=== PATIENT | female | born 1950 | race Caucasian/White ===

== ENCOUNTER 2016-12-18 09:06 | Day surgery (SDC) | payer OTHER, BC ==
[~2016-12-18] VITALS: Ht 167.6 cm; Wt 81.7 kg
[~2016-12-18 09:06] MED LIST: CALCIUM ACETAT667 MG PO; ERGOCALCIF50000 UNIT PO; FOSRENOL1000 MG PO; NEPHROCAPS SOFTG1 MG PO; PROTONIX40 MG PO; SENSIPAR30 MG PO
[2016-12-18 10:57] LABS: METH RESISTANT S AUREUS PCR NEGATIVE (NEGATIVE)
[2016-12-18 10:58] LABS: PROBE CHECK PASS; SPECIMEN PROCESSING CONTROL PASS
[2016-12-18 14:58] VITALS: BP 139/67
[2016-12-18 17:25] LABS: EOSINOPHIL (%) 1.4 % (0-5); EOSINOPHIL COUNT 0.1 K/uL (0-0.3); HEMATOCRIT 26.4 % (36.0-46.0); IMMATURE GRANULOCYTE (%) 0.7 % (0.0-0.7); IMMATURE GRANULOCYTE COUNT 0.1 K/uL; INSTRUMENT ABS NEUTROPHIL CT 5.1 K/uL; LYMPHOCYTE COUNT 1.1 K/uL (1.0-2.8); MCH 30.4 PG (29.0-34.0); MCHC 31.8 G/DL (30.0-36.0); MCV 95.7 FL (83-99); MEAN PLAT.VOLUME 9.5 uM^3 (9.5-12.4); MONOCYTE (%) 8.7 % (3-12); MONOCYTE COUNT 0.6 K/uL (0-0.8); NEUTROPHIL (%) 73.4 % (45-76); NEUTROPHIL COUNT 5.1 K/uL (1.8-6.4); PLATELET COUNT 233 K/uL (156-360); RBC DIS.WIDTH-CV 14.9 % (11.8-14.6); RBC DIS.WIDTH-SD 51.6 % (39-53); RED BLOOD COUNT 2.76 M/uL (3.80-5.20); WHITE BLOOD COUNT 6.9 K/uL (4.1-10.2)
[2016-12-18 17:36] LABS: ANION GAP 26 MEQ/L (2-14); CHLORIDE 88 MEQ/L (99-109); POTASSIUM 3.7 MEQ/L (3.7-5.4); SAMPLE HEMOLYSIS CHECK 0; SAMPLE ICTERIC CHECK 0; SAMPLE LIPEMIA CHECK 0; SODIUM 137 MEQ/L (136-147)
[2016-12-18 17:41] LABS: GFR ESTIMATE (CALCULATED) 6 mL/min/; GLUCOSE 100 mg/dL (70-99); UREA NITROGEN (BUN) 73 mg/dL (9-23)
[2016-12-18 18:43] LABS: HBSG INDEX 0.24
[2016-12-18 18:44] LABS: AHBS INDEX 2.01; HEPATITIS B SURFACE ANTIBODY Nonreactive
[2016-12-18 20:26] VITALS: BP 124/60
[2016-12-18 23:19] VITALS: BP 133/62
[2016-12-19 03:52] VITALS: BP 128/70
== END 2016-12-19 08:45 | disposition home or self-care (01) ==
LOC: CATH 09:06 → 2SOUTH 11:40 → ENRESERV 11:44 → 2EAST 14:35
PROVIDERS: Internal Medicine Nephrology; Surgery
DX: T82.868A Thrombosis due to vascular prosthetic devices, implants and grafts, initial encounter (principal); N18.6 End stage renal disease; Z99.2 Dependence on renal dialysis; E83.39 Other disorders of phosphorus metabolism; N25.81 Secondary hyperparathyroidism of renal origin; Z98.84 Bariatric surgery status; Z96.649 Presence of unspecified artificial hip joint; Y83.2 Surgical operation with anastomosis, bypass or graft as the cause of abnormal reaction of the patient, or of later complication, without mention of misadventure at the time of the procedure
CPT/HCPCS: 80069; 85025; 86706; 87340; 87641; C1750; C1757; C1769; C1894; C2628; G0378; J1644; J2250; J2720; J3010; J7050; S0020

== ENCOUNTER 2017-01-12 06:28 | Day surgery (SDC) | payer OTHER, BC ==
[~2017-01-12] VITALS: Ht 167.6 cm; Wt 85.0 kg
[2017-01-12 08:45] LABS: METH RESISTANT S AUREUS PCR NEGATIVE (NEGATIVE)
[2017-01-12 08:52] LABS: PROBE CHECK PASS; SPECIMEN PROCESSING CONTROL PASS
== END 2017-01-12 09:05 | disposition home or self-care (01) ==
LOC: CATH 06:28
PROVIDERS: Surgery
DX: T85.618A Breakdown (mechanical) of other specified internal prosthetic devices, implants and grafts, initial encounter (principal); N18.6 End stage renal disease; Z99.2 Dependence on renal dialysis
CPT/HCPCS: 87641; C1750; J0690; J1644; J3010; S0020

== ENCOUNTER 2017-03-19 13:45 | Day surgery (SDC) | payer OTHER, BC ==
[~2017-03-19 13:45] MED LIST changes: +NEPHRO-VITE,1 TABLET PO
[2017-03-19 16:12] LABS: METH RESISTANT S AUREUS PCR NEGATIVE (NEGATIVE)
[2017-03-19 16:35] LABS: PROBE CHECK PASS; SPECIMEN PROCESSING CONTROL PASS
== END 2017-03-19 17:23 | disposition home or self-care (01) ==
LOC: CATH 13:45
PROVIDERS: Surgery
DX: T82.868A Thrombosis due to vascular prosthetic devices, implants and grafts, initial encounter (principal); Y83.2 Surgical operation with anastomosis, bypass or graft as the cause of abnormal reaction of the patient, or of later complication, without mention of misadventure at the time of the procedure; N18.6 End stage renal disease; Z99.2 Dependence on renal dialysis; Z96.649 Presence of unspecified artificial hip joint; Z98.84 Bariatric surgery status; Z88.8 Allergy status to other drugs, medicaments and biological substances; Z82.49 Family history of ischemic heart disease and other diseases of the circulatory system; Z83.3 Family history of diabetes mellitus
CPT/HCPCS: 87641; C1725; C1757; C1769; C1874; C1894; C2628; J0690; J1644; J2250; J3010; S0020

== ENCOUNTER → 2017-04-30 | Outpatient (CLI) | payer OTHER, BC ==
[~2017-04-30] MED LIST changes: +TYLENOL REGULA325 MG PO; +auryxia
== END | disposition home or self-care (01) ==
LOC: AMB 08:54
PROC: 02PYX3Z Removal of Infusion Device from Great Vessel, External Approach (ICD-10-PCS; principal; 2017-04-30)
DX: Z45.2 Encounter for adjustment and management of vascular access device (principal); N18.6 End stage renal disease

== ENCOUNTER 2017-11-20 14:56 | Observation (INO) | payer OTHER, BC ==
[~2017-11-20] VITALS: Ht 167.6 cm; Wt 83.0 kg
[2017-11-20 16:06] LABS: HEMATOCRIT 34.4 % (36.0-46.0); HEMOGLOBIN 11.1 G/DL (11.9-15.5); MCH 30.1 PG (29.0-34.0); MCHC 32.3 G/DL (30.0-36.0); MCV 93.2 FL (83-99); PLATELET COUNT 262 K/uL (156-360); RBC DIS.WIDTH-CV 16.9 % (11.8-14.6); RED BLOOD COUNT 3.69 M/uL (3.80-5.20); WHITE BLOOD COUNT 6.3 K/uL (4.1-10.2)
[2017-11-20 16:14] LABS: CHLORIDE 100 mEq/L (99-109); POTASSIUM 4.5 mEq/L (3.7-5.4); PTT 30.5 SEC (25-37); SODIUM 143 mEq/L (136-147)
[2017-11-20 16:16] LABS: GLUCOSE 85 mg/dL (70-99)
[2017-11-20 16:20] LABS: CREATININE 8.4 mg/dL (0.6-1.3); GFR ESTIMATE (CALCULATED) 5 mL/min/
[2017-11-20 16:21] LABS: UREA NITROGEN (BUN) 51 mg/dL (9-23)
[2017-11-20] MEDS ORDERED: FERRIC CITRATE210 MG PO (16:45)
[2017-11-20] MEDS ORDERED: TYLENOL EXTRA500 MG PO (16:46)
[2017-11-20] MEDS ORDERED: LIDOCAINE-PRIL1 EACH TP (16:48)
[2017-11-21 00:20] VITALS: BP 129/65
[2017-11-21 04:21] VITALS: BP 111/53
[2017-11-21 07:15] LABS: HEMATOCRIT 27.7 % (36.0-46.0); INTER. NORMALIZED RATIO 1.1; MCH 29.4 PG (29.0-34.0); MCHC 31.8 G/DL (30.0-36.0); MCV 92.6 FL (83-99); PLATELET COUNT 225 K/uL (156-360); RBC DIS.WIDTH-CV 17.1 % (11.8-14.6); RBC DIS.WIDTH-SD 57.2 % (39-53); RED BLOOD COUNT 2.99 M/uL (3.80-5.20); WHITE BLOOD COUNT 3.8 K/uL (4.1-10.2)
[2017-11-21 07:16] LABS: HEMOGLOBIN 8.8 G/DL (11.9-15.5)
[2017-11-21 07:30] VITALS: BP 122/58
[2017-11-21 07:33] LABS: CHLORIDE 97 MEQ/L (99-109); CREATININE 8.2 MG/DL (0.6-1.3); GFR ESTIMATE (CALCULATED) 5 mL/min/; POTASSIUM 4.8 MEQ/L (3.7-5.4); SODIUM 138 MEQ/L (136-147); UREA NITROGEN (BUN) 58 mg/dL (9-23)
[2017-11-21 07:43] LABS: GLUCOSE 107 mg/dL (70-99)
[2017-11-21 11:23] VITALS: BP 120/60
[2017-11-21 14:04] LABS: HEPATITIS B SURFACE ANTIBODY Nonreactive; HEPATITIS B SURFACE ANTIGEN Nonreactive; HEPATITIS C ANTIBODY Nonreactive
[2017-11-21 14:05] LABS: ANTI-HEPATITIS B CORE (TOTAL) Nonreactive
[2017-11-21 17:03] VITALS: BP 124/61
[2017-11-22 10:56] LABS: HEMOGLOBIN A1c (GLYCOHEMOGLOB) 4.8 % (Below 5.7)
== END 2017-11-21 17:44 | disposition home or self-care (01) ==
LOC: EME 14:56 → EDOF 16:51 → ENRESERV 16:55 → 2EAST 19:58
PROVIDERS: Internal Medicine; Internal Medicine Nephrology
PROC: B51W1ZZ Fluoroscopy of Dialysis Shunt/Fistula using Low Osmolar Contrast (ICD-10-PCS; principal; 2017-11-20)
PROC: 03CY0ZZ Extirpation of Matter from Upper Artery, Open Approach (ICD-10-PCS; principal; 2017-11-20)
PROC: 05CY0ZZ Extirpation of Matter from Upper Vein, Open Approach (ICD-10-PCS; principal; 2017-11-20)
PROC: 05773ZZ Dilation of Right Axillary Vein, Percutaneous Approach (ICD-10-PCS; principal; 2017-11-20)
PROC: 05793ZZ Dilation of Right Brachial Vein, Percutaneous Approach (ICD-10-PCS; principal; 2017-11-20)
PROC: 05753ZZ Dilation of Right Subclavian Vein, Percutaneous Approach (ICD-10-PCS; principal; 2017-11-20)
PROC: 027V3ZZ Dilation of Superior Vena Cava, Percutaneous Approach (ICD-10-PCS; principal; 2017-11-20)
DX: T82.868A Thrombosis due to vascular prosthetic devices, implants and grafts, initial encounter (principal); T82.858A Stenosis of other vascular prosthetic devices, implants and grafts, initial encounter; I12.0 Hypertensive chronic kidney disease with stage 5 chronic kidney disease or end stage renal disease; E11.22 Type 2 diabetes mellitus with diabetic chronic kidney disease; N18.6 End stage renal disease; N25.81 Secondary hyperparathyroidism of renal origin; Z99.2 Dependence on renal dialysis; E87.2 Acidosis; Z85.038 Personal history of other malignant neoplasm of large intestine; Z86.19 Personal history of other infectious and parasitic diseases; Z98.84 Bariatric surgery status; Z96.649 Presence of unspecified artificial hip joint; Z87.891 Personal history of nicotine dependence; Z88.5 Allergy status to narcotic agent; Z91.048 Other nonmedicinal substance allergy status; Z88.8 Allergy status to other drugs, medicaments and biological substances; Y83.2 Surgical operation with anastomosis, bypass or graft as the cause of abnormal reaction of the patient, or of later complication, without mention of misadventure at the time of the procedure
CPT/HCPCS: 71045; 80048; 83036; 85027; 85610; 85730; 86704; 86706; 86803; 87340; 93005; C1725; C1757; C1769; G0257; G0378; J0131; J0690; J1170; J1644; J2405; J3010; S0020